=== PATIENT | female | born 1970 | race Two or more races ===

== ENCOUNTER 2018-07-06 17:35 | Emergency (ER) | payer OTHER ==
[~2018-07-06] VITALS: Ht 167.6 cm; Wt 79.4 kg
[~2018-07-06 17:35] MED LIST: CYCLOBENZAPRINE10 MG PO; DICLOFENAC SODI50 MG PO
[2018-07-06] MEDS ORDERED: TESSALON PERLE100 M1 PO (21:51)
== END 2018-07-06 22:01 | disposition home or self-care (01) ==
LOC: ER 17:35
DX: B34.9 Viral infection, unspecified (principal)

== ENCOUNTER 2020-10-29 19:38 | Emergency (ER) | payer OTHER ==
[~2020-10-29] VITALS: Ht 167.6 cm; Wt 93.0 kg
[~2020-10-29 19:38] MED LIST changes: +TESSALON PERLE100 M1 PO
[2020-10-29] MEDS ORDERED: COZAAR50 MG (19:42)
== END 2020-10-29 23:49 | disposition home or self-care (01) ==
LOC: ER 19:38
DX: B34.9 Viral infection, unspecified (principal); D62 Acute posthemorrhagic anemia; Z11.52 Encounter for screening for COVID-19